=== PATIENT | female | born 1945 | race Caucasian/White ===

== ENCOUNTER 2017-09-04 17:39 | Emergency (ER) | payer OTHER, MEDICARE ==
--- NOTE | 2017-09-04 18:23 | EDPHY ---
HPI/HX/ROS/PE/MDM Narrative: CHIEF COMPLAINT: Possible diverticulitis HPI: This patient is a healthy 72 year old female. She complains of lower abdominal pain and diarrhea onset one week ago. She felt slightly better over the weekend , but yesterday she developed severe bilateral lower abdominal pain. Today she felt too poorly to visit her primary care physician, so [facility] staff came to her home to evaluate her. Following laboratory studies, they recommended she present to the ED. She has records of this visit with her to review. The patient denies history of diverticulitis. She has not had any abdominal surgeries or colonoscopies. No history of heart problems or diabetes. She denies dysuria, hematuria, melena, hematochezia. No fever, chest pain, shortness of breath, or other associated symptoms. REVIEW OF SYSTEMS: Aside from elements discussed in the HPI, a comprehensive 10-point review of systems was reviewed and is negative. PMH: Vertigo. S/p hip replacement. SOCIAL HISTORY: Lives in [place]. Retired. Nonsmoker. PHYSICAL EXAM: General:Patient is alert, in no acute distress. ENT:Eyes are normal to inspection. ENT inspection normal. Neck: Normal inspection. Full range of motion. Respiratory:No respiratory distress. Breath sounds normal bilaterally. Cardiovascular: Regular rate and rhythm. Strong peripheral pulses. Normal cap refill. Abdomen: Diffuse moderate tenderness throughout lower abdomen. There are no peritoneal signs. There are normal bowel sounds. Back: Normal to inspection. No tenderness to palpation. Skin: Normal color. No rash. Warm and dry. Extremities: Normal appearance. Full range of motion. Neuro: Oriented x3. Normal motor function. Normal sensory function. ED Course: 72 y/o female presents with 1 week history of bilateral lower abdominal pain and diarrhea. Diffuse moderate lower abdominal tenderness on exam. Plan for labs including CBC, chemistries, UA. Plan for CT abdomen/pelvis. Patient declines pain medication at this time. She rates her current discomfort at 4/ 10. I assured her she can have medication for pain should her discomfort worsen at any point. WBC mildly elevated at 12,000. 19:[address] Harding, radiologist. CT shows evidence of coelitis. Negative for diverticulitis. Plan for additional labs including lactate and GI pathogen PCR. UA positive for UTI. 20:05 Patient is now complaining of increased pain. She declines narcotic pain medication. Plan to administer 650mg PO acetaminophen. 21:11 Reassessed. I offered admission but the patient declines. Plan to d/c home in good condition with prescription for Cipro. Administered 500mg PO Cipro here in the emergency department prior to departure. Follow and return precautions discussed. She is comfortable with this plan. MDM: This patient presents with findings of colitis on CT scan which match her signs and symptoms, but the etiology is unclear. She has no travel history to suggest infectious source. There are no clear signs of ischemic colitis on CT and her venous lactate is normal, making this unlikely. I discussed options with the patient who is fairly adamant about not being admitted to the hospital. We also discussed option of antibiotics which she would prefer to take. We discussed the important need for close follow-up with her primary physician and return to the hospital should her symptoms worsen. - Data Points Imaging Results: Imaging Impressions Abdomen CT 09/04/17 19:01 Impression: 1. Nonspecific colitis involving the descending and sigmoid colon, probably infectious/inflammatory. 2. No drainable abscess, pneumoperitoneum, or bowel obstruction. 3. Atherosclerotic aorta, without aneurysm or dissection. Findings and recommendations discussed with Emergency Department physician, Pal Goldstein M.D., at 1941 hours, on September 04, 2017. Final report concurs with initial preliminary interpretation. Imaging: Discussed imaging studies w/ carpenter mold Radiologist Laboratory Results: Laboratory Results 09/04/17 18:25 09/04/17 18:25 09/04/17 09/04/17 09/04/17 19:55 18:25 18:25 WBC RBC Hgb Hct MCV MCH MCHC RDW Plt Count MPV Neut % (Auto) Lymph % (Auto) [place] % (Auto) Eos % (Auto) Baso % (Auto) Nucleat RBC Rel Count Absolute Neuts (auto) Absolute Lymphs (auto) Absolute Monos (auto) Absolute Eos (auto) Absolute Basos (auto) Absolute Nucleated RBC Immature Gran % Immature Gran # VBG Lactic Acid 1.0 mmol/L mmol/L (0.7-2.1) Sodium 139 mEq/L mEq/L (135-145) Potassium 3.5 mEq/L mEq/L (3.3-5.0) Chloride 104 mEq/L mEq/L (97-110) Carbon Dioxide 23 mEq/l mEq/l (22-31) Anion Gap 12 mEq/L mEq/L (8-16) BUN 18 mg/dL mg/dL (7-23) Creatinine 0.9 mg/dL mg/dL (0.6-1.0) Estimated GFR > 60 Glucose 126 mg/dL H mg/dL (70-100) Calcium 9.7 mg/dL mg/dL (8.5-10.4) Urine Color YELLOW Urine Appearance HAZY Urine pH 5.0 (5.0-7.5) Ur Specific [place] 1.025 (1.002-1.030) Urine Protein NEGATIVE (NEGATIVE) Urine Ketones 1+ H (NEGATIVE) Urine Blood NEGATIVE (NEGATIVE) Urine Nitrate NEGATIVE (NEGATIVE) Urine Bilirubin NEGATIVE (NEGATIVE) Urine Urobilinogen 2.0 EU H EU (0.2-1.0) Ur Leukocyte Esterase 2+ H (NEGATIVE) Urine RBC 5-10 /hpf H /hpf (0-3) Urine WBC 5-10 /hpf H /hpf (0-3) Ur Epithelial Cells TRACE /lpf /lpf (NONE-1+) Urine Mucus 2+ /lpf H /lpf (NONE-1+) Urine Glucose NEGATIVE (NEGATIVE) 09/04/17 18:25 WBC 12.90 10^3/uL H 10^3/uL (3.80-9.50) RBC 5.03 10^6/uL 10^6/uL (4.18-5.33) Hgb 15.8 g/dL g/dL (12.6-16.3) Hct 48.3 % H % (38.0-47.0) MCV 96.0 fL fL (81.5-99.8) MCH 31.4 pg pg (27.9-34.1) MCHC 32.7 g/dL g/dL (32.4-36.7) RDW 11.7 % % (11.5-15.2) Plt Count 181 10^3/uL 10^3/uL (150-400) MPV 10.4 fL fL (8.7-11.7) Neut % (Auto) 79.0 % H % (39.3-74.2) Lymph % (Auto) 9.1 % L % (15.0-45.0) [place] % (Auto) 10.9 % % (4.5-13.0) Eos % (Auto) 0.4 % L % (0.6-7.6) Baso % (Auto) 0.2 % L % (0.3-1.7) Nucleat RBC Rel Count 0.0 % % (0.0-0.2) Absolute Neuts (auto) 10.20 10^3/uL H 10^3/uL (1.70-6.50) Absolute Lymphs (auto) 1.17 10^3/uL 10^3/uL (1.00-3.00) Absolute Monos (auto) 1.40 10^3/uL H 10^3/uL (0.30-0.80) Absolute Eos (auto) 0.05 10^3/uL 10^3/uL (0.03-0.40) Absolute Basos (auto) 0.03 10^3/uL 10^3/uL (0.02-0.10) Absolute Nucleated RBC 0.00 10^3/uL 10^3/uL (0-0.01) Immature Gran % 0.4 % % (0.0-1.1) Immature Gran # 0.05 10^3/uL 10^3/uL (0.00-0.10) VBG Lactic Acid Sodium Potassium Chloride Carbon Dioxide Anion Gap BUN Creatinine Estimated GFR Glucose Calcium Urine Color Urine Appearance Urine pH Ur Specific [place] Urine Protein Urine Ketones Urine Blood Urine Nitrate Urine Bilirubin Urine Urobilinogen Ur Leukocyte Esterase Urine RBC Urine WBC Ur Epithelial Cells Urine Mucus Urine Glucose Medications Given: Discontinued Medications Acetaminophen (Tylenol) 650 mg PO EDNOW ONE Stop: 09/04/17 20:06 Last Admin: 09/04/17 20:16 Dose: 650 mg Ciprofloxacin (Cipro) 500 mg PO EDNOW ONE PRN Reason: Protocol Stop: 09/04/17 21:12 Last Admin: 09/04/17 21:29 Dose: 500 mg General Time Seen by Provider: 09/04/17 18:08 Initial Vital Signs: Initial Vital Signs Temperature (C) 36.7 C 09/04/17 17:53 Heart Rate 86 09/04/17 17:53 Respiratory Rate 16 09/04/17 17:53 Blood Pressure 129/77 H 09/04/17 17:53 O2 Sat (%) 97 09/04/17 17:53 O2 Delivery Mode Room Air Allergies/Adverse Reactions: Penicillins Allergy (Intermediate, Verified 04/12/10 14:19) NAUSEA, LIGHT HEADED CILANTRO Allergy (Severe, Uncoded 04/12/10 14:41) VOMITING, DIARRHEA CORIANDOR Allergy (Severe, Uncoded 04/12/10 14:42) VOMITING, DIARRHEA CUMIN Allergy (Severe, Uncoded 04/12/10 14:45) Diarrhea CRAB Allergy (Intermediate, Uncoded 04/12/10 14:42) ITCH Home Medications: Medication Instructions Recorded Ciprofloxacin [Cipro] 500 mg PO BID #6 tab 09/04/17 Departure - Departure Disposition: Home, Routine, Self-Care Clinical Impression: Urinary tract infection, Colitis Condition: Good Instructions: Ciprofloxacin (By mouth), Urinary Tract Infection in Women (ED), Colitis (ED) Additional Instructions: Follow up with your primary care provider without fail in 48 hours. Take Cipro as prescribed. It is important to finish your entire course of antibiotics even if you are feeling better. Return to the emergency department for fever, worsening pain, uncontrollable vomiting or diarrhea, or other worsening of condition. Referrals: Connie Gooden MD [Primary Care Provider] - As per Instructions Prescriptions: Ciprofloxacin [Cipro] 500 mg PO BID #6 tab Report Scribed for: Pal Goldstein Report Scribed by: Bertha Tate Date of Report: 09/04/17 Time of Report: 18:23 Physician Review and Approval Statement: Portions of this note were transcribed by an ED scribe. I personally performed the history, physical exam, and medical decision making; and confirm the accuracy of the information in the transcribed note.
[2017-09-04 18:42] LABS: PLATELET COUNT 181 10^3/uL (150-400)
[2017-09-04] MEDS ORDERED: IOPAMIDOL (ISOVUE-300) 100 ML BTL ONE (19:06)
[2017-09-04] MEDS ORDERED: ACETAMINOPHEN 325 MG TAB ONE (20:02)
[2017-09-04] MEDS ORDERED: ACETAMINOPHEN 325 MG TAB PO ONE (20:05)
[2017-09-04 20:22] VITALS: BP 146/82
[2017-09-04] MEDS ORDERED: CIPROFLOXACIN 500 MG TAB PO ONE (21:11)
== END 2017-09-04 21:40 | disposition home or self-care (01) ==
DX: A04.72 Enterocolitis due to Clostridium difficile, not specified as recurrent (principal); N39.0 Urinary tract infection, site not specified
CPT/HCPCS: 74177; 99285; Q9967